=== PATIENT | male | born 1995 | race Caucasian/White ===

== ENCOUNTER 2022-05-26 19:06 | Emergency (ER) | payer OTHER | END 2022-05-26 23:40 | disposition home or self-care (01) | LOC: ED 19:06 | DX: M23.91 Unspecified internal derangement of right knee (principal) ==

== ENCOUNTER → 2023-04-15 | Outpatient (CLI) | payer OTHER ==
[~2023-04-15] MED LIST: MELOXICAM15 MG PO
== END | disposition home or self-care (01) ==
LOC: CT 09:00
PROVIDERS: ATTEND Surgery
DX: R10.0 Acute abdomen (principal)

== ENCOUNTER → 2023-05-12 | Day surgery (SDC) | payer OTHER ==
[~2023-05-12] VITALS: Ht 182.8 cm; Wt 120.2 kg
[~2023-05-12] MED LIST changes: +CELECOXIB200 M1 PO; +HYDROCODONE-AC1 EAC1 PO; +LYRICA75 M1 PO; +VARENICLINE TART1 MG PO
[2023-05-12 11:13] VITALS: BP 131/75
[2023-05-12 13:58] VITALS: BP 100/46
[2023-05-12 14:13] VITALS: BP 101/48
[2023-05-12 14:28] VITALS: BP 102/52
== END | disposition home or self-care (01) ==
LOC: SDC 05-09 08:45
PROVIDERS: ATTEND Surgery
DX: R10.32 Left lower quadrant pain (principal); D17.1 Benign lipomatous neoplasm of skin and subcutaneous tissue of trunk; M89.8X9 Other specified disorders of bone, unspecified site; K40.90 Unilateral inguinal hernia, without obstruction or gangrene, not specified as recurrent; F17.200 Nicotine dependence, unspecified, uncomplicated; Z79.899 Other long term (current) drug therapy; Z98.818 Other dental procedure status; Z98.890 Other specified postprocedural states

== ENCOUNTER → 2023-09-09 | Outpatient (CLI) | payer OTHER | END | disposition home or self-care (01) | LOC: MRI 01:07 | PROVIDERS: ATTEND Pain Medicine Interventional Pain Medicine | DX: M51.17 Intervertebral disc disorders with radiculopathy, lumbosacral region (principal); M47.27 Other spondylosis with radiculopathy, lumbosacral region; M51.16 Intervertebral disc disorders with radiculopathy, lumbar region; M48.061 Spinal stenosis, lumbar region without neurogenic claudication ==